=== PATIENT | male | born 1980 | race Caucasian/White ===

== ENCOUNTER 2022-01-26 11:32 | Emergency (ER) | payer OTHER ==
[~2022-01-26] VITALS: Ht 185.4 cm; Wt 109.1 kg
[2022-01-26 11:39] VITALS: BP 125/94
--- NOTE | 2022-01-26 13:15 | NUR ---
REVIEWED AND AGREE WITH ALL DOCUMENTATION AND ASSESSMENTS BY ABIODUN CARDOSO.
[2022-01-26 13:35] LABS: CLARITY,URINE SLIGHTLY CLOUDY (Clear); GLUCOSE, URINE NEGATIVE (Neg); KETONES,URINE TRACE mg/dl (Neg); LEUKOCYTE ESTERASE ,URINE NEGATIVE (Neg); NITRITES, URINE NEGATIVE (Neg); OCCULT BLOOD,URINE NEGATIVE (Neg); PH,URINE 5.5 (4.8-8.0); PROTEIN,URINE NEGATIVE (Neg); UROBILINOGEN,URINE >=8.0 E.U/dL (0.2-1.0)
[2022-01-26 13:39] LABS: COLOR,URINE AMBER (Yellow); UA COLLECTION TYPE NON-SPECIFIED
[2022-01-26 14:20] LABS: BACTERIA,URINE FEW /HPF (Neg); CAL OXALATE CRYSTALS 4+ /HPF (NEGATIVE); MUCUS STRANDS MODERATE /LPF (Neg); SQUAMOUS EPITHELIAL CELL,UR FEW /LPF (FEW)
[2022-01-26 14:21] LABS: RBC,URINE 0-2 /HPF (0-2); WBC,URINE 0-4 /HPF (0-4)
== END 2022-01-26 15:43 | disposition home or self-care (01) ==
LOC: ER 11:34
DX: N45.1 Epididymitis (principal); N50.811 Right testicular pain; R11.0 Nausea; R42 Dizziness and giddiness; N43.40 Spermatocele of epididymis, unspecified; E78.00 Pure hypercholesterolemia, unspecified; I10 Essential (primary) hypertension; Z72.0 Tobacco use; Z98.890 Other specified postprocedural states; Z88.8 Allergy status to other drugs, medicaments and biological substances
CPT/HCPCS: 76870; 81001; 93976; 99284